=== PATIENT | male | born 1965 | race Caucasian/White ===

== ENCOUNTER 2017-07-07 14:03 | Emergency (ER) | payer OTHER ==
[~2017-07-07] VITALS: Ht 180.3 cm; Wt 154.2 kg
[~2017-07-07 14:03] MED LIST: ASPI81CH PO; BUPR150ER PO; DIAZ5 PO; GABA600 PO; HYDCHL12.5 PO; HYDMOR2 PO; LISI20 PO; MONT10T PO; SERT50 PO; TADA10TA PO; TRAZ50 PO
[2017-07-07] MEDS ORDERED: SERT100 PO (14:27)
[2017-07-07] MEDS ORDERED: Lovenox40 MG/0.4 SC (14:36)
[2017-07-07] MEDS ORDERED: Lovenox120 MG/0.8 SC (14:36)
[2017-07-07] MEDS ORDERED: Coumadin5 MG PO ×2 (14:36→17:55)
[2018-05-04] MEDS ORDERED: ELIQUIS5 MG (13:54)
== END 2017-07-07 14:50 | disposition home or self-care (01) ==
LOC: ER 14:03
DX: I82.401 Acute embolism and thrombosis of unspecified deep veins of right lower extremity (principal); Z79.899 Other long term (current) drug therapy; Z79.82 Long term (current) use of aspirin; I10 Essential (primary) hypertension; Z87.891 Personal history of nicotine dependence
CPT/HCPCS: 96372; 99283; J1650

== ENCOUNTER → 2017-07-12 | Outpatient (CLI) | payer OTHER ==
[~2017-07-12] MED LIST changes: +Coumadin5 MG PO; +ELIQUIS5 MG; +Lovenox120 MG/0.8 SC; +Lovenox40 MG/0.4 SC; +SERT100 PO
== END | disposition home or self-care (01) ==
LOC: LAB EV 10:32
DX: Z79.01 Long term (current) use of anticoagulants (principal); Z51.81 Encounter for therapeutic drug level monitoring
CPT/HCPCS: 36416; 85610

== ENCOUNTER → 2017-10-05 | Outpatient (CLI) | payer OTHER ==
[~2017-10-05] MED LIST changes: -ELIQUIS5 MG
[2017-10-07 12:45] LABS: Prothrombin Result Negative (NEG)
== END | disposition home or self-care (01) ==
LOC: LAB EV 11:11 → LAB SHORT 11:11
PROVIDERS: Family Medicine
DX: I82.401 Acute embolism and thrombosis of unspecified deep veins of right lower extremity (principal)
CPT/HCPCS: 81240; 81241; 81291

== ENCOUNTER → 2018-08-09 | Outpatient (CLI) | payer OTHER, SELFPAY ==
[~2018-08-09] MED LIST changes: +ELIQUIS5 MG
[2018-08-09 13:46] LABS: BASOPHILS ABSOLUTE AUTO 0.06 K/mm3 (0.00-0.23); BASOPHILS PERCENT AUTO 1 % (0-2); EOSINOPHILS ABSOLUTE AUTO 0.39 K/mm3 (0.00-0.68); EOSINOPHILS PERCENT AUTO 6 % (0-6); Hematocrit 46.8 % (37.0-53.0); Hemoglobin 14.9 g/dL (13.5-17.5); IMMATURE GRAN ABSOLUTE AUTO 0.04 K/mm3 (0.00-0.10); IMMATURE GRAN PERCENT AUTO 1 % (0-1); LYMPHOCYTES ABSOLUTE AUTO 1.97 K/mm3 (0.84-5.20); LYMPHOCYTES PERCENT AUTO 28 % (21-46); MONOCYTES ABSOLUTE AUTO 0.75 K/mm3 (0.16-1.47); MONOCYTES PERCENT AUTO 11 % (4-13); Mean Corpuscular HGB 30.2 pg (26.0-34.0); Mean Corpuscular HGB Conc 31.8 g/dL (31.5-36.5); Mean Corpuscular Volume 95 fL (80-100); Mean Platelet Volume 9.8 fL (9.1-12.4); NEUTROPHILS ABSOLUTE AUTO 3.86 K/mm3 (1.96-9.15); NEUTROPHILS PERCENT AUTO 55 % (41-73); Platelet Count 308 K/mm3 (150-400); Red Blood Cell Count 4.93 M/mm3 (4.30-5.90); White Blood Cell Count 7.07 K/mm3 (4.00-11.30)
[2018-08-09 14:09] LABS: Alanine Aminotransfer (ALT/SGP 30 U/L (12-78); Albumin, Blood 3.7 g/dL (3.4-5.0); Alk Phos 105 U/L (50-136); Anion Gap 7 mmol/L (6-16); Aspartate Aminotrans (AST/SGOT 20 U/L (12-37); Bilirubin, Total 0.3 mg/dL (0.1-1.0); Blood Urea Nitrogen 13 mg/dL (8-24); Bun/Creatinine Ratio 14.7 (12.0-20.0); CO2, Blood 29 mmol/L (21-32); Calcium, Blood 8.9 mg/dL (8.5-10.1); Chloride, Blood 104 mmol/L (98-108); Creatinine, Blood 0.88 mg/dL (0.60-1.20); Globulin, Blood 3.7 g/dL (2.2-4.0); Glomerular Filtration Rate >60 (60-); Glucose, Blood 99 mg/dL (70-99); Sodium, Blood 140 mmol/L (136-145); Total Protein, Blood 7.4 g/dL (6.4-8.2)
[2018-08-09 14:12] LABS: Thyroid Stimulating Hormone 0.726 uIU/mL (0.360-4.800)
== END | disposition home or self-care (01) ==
LOC: LAB SHORT 13:25 → LAB 13:25
PROVIDERS: Physician Assistant
DX: R53.83 Other fatigue (principal)
CPT/HCPCS: 80053; 84443; 85025

== ENCOUNTER 2018-12-02 06:01 | Day surgery (SDC) | payer OTHER ==
[~2018-12-02] VITALS: Ht 177.8 cm; Wt 164.0 kg
[2018-12-02] MEDS ORDERED: XARELTO20 MG PO (06:27)
[2018-12-02] MEDS ORDERED: VENL150ER PO (06:29)
[2018-12-02] MEDS ORDERED: OXYC10TA19 PO (06:30)
[2018-12-02] MEDS ORDERED: Abilify2 MG PO (06:30)
--- NOTE | 2018-12-02 11:46 | NUR ---
PT DRESSED, R RADIAL SITE TR BAND DC'D, DRESSING AND SPLINT IN PLACE ON R WRIST, R ARM SLING PLACED, IV DC'D INTACT, PT CHOOSES TO AMB OUT WITH PARENTS DRIVING PT HOME. SEE RHYTHM STRIP RECORD FOR VITALS
[2019-01-02] MEDS ORDERED: ZOLP10 PO (15:11)
== END 2018-12-02 11:30 | disposition home or self-care (01) ==
LOC: MHTC 06:01
DX: I25.10 Atherosclerotic heart disease of native coronary artery without angina pectoris (principal); I07.1 Rheumatic tricuspid insufficiency; I10 Essential (primary) hypertension; E66.01 Morbid (severe) obesity due to excess calories; Z79.899 Other long term (current) drug therapy; Z87.891 Personal history of nicotine dependence
CPT/HCPCS: 93458; 99152; 99153; C1769; C1894; J1644; J2250; J3010; J7030; Q9967

== ENCOUNTER 2019-01-04 07:33 | Day surgery (SDC) | payer OTHER ==
[~2019-01-04] VITALS: Ht 177.8 cm; Wt 167.5 kg
[~2019-01-04 07:33] MED LIST changes: +Abilify2 MG PO; +OXYC10TA19 PO; +VENL150ER PO; +XARELTO20 MG PO; +ZOLP10 PO
--- NOTE | 2019-01-04 08:10 | NUR ---
PT ADMITTED TO [facility]. AGREES WITH PLANNED SURGERY. LUNG SOUNDS CLEAR.
--- NOTE | 2019-01-04 08:17 | NUR ---
NO PAS PLACED ON RIGHT LE, PT STATES DVT IN THAT LEG. DR. CRUZ AWARE.
--- NOTE | 2019-01-04 09:22 | NUR ---
01/04/19 0922 Tsering Dugan ALL COUNTS CORRECT.
--- NOTE | 2019-01-04 10:10 | NUR ---
"ENERGY RISK MANAGEMENT ANALYST | REPORT FROM SHONA DUMONT, PATIENT TRANSFER TO DAY SURGERY, AND REPORT TO GUS DUMONT. NO ISSUES."
--- NOTE | 2019-01-04 10:55 | NUR ---
Discharge instructions reviewed with patient. Patient verbalizes understanding. Copy given to patient to take home. Post op shoe placed to r foot. pt given rx and ice pack. Discharged via wheelchair to private car for ride home.
== END 2019-01-04 10:50 | disposition home or self-care (01) ==
LOC: ORSCMMR 07:33 → ORD 08:30 → ORSCMMR 09:00 → ORD 11:45 → ORSCMMR 11:45
PROVIDERS: Podiatrist Foot & Ankle Surgery
PROC: 0QBN0ZZ Excision of Right Metatarsal, Open Approach (ICD-10-PCS; principal; 2019-01-04 09:00)
DX: M21.961 Unspecified acquired deformity of right lower leg (principal); I10 Essential (primary) hypertension; I25.10 Atherosclerotic heart disease of native coronary artery without angina pectoris; J44.9 Chronic obstructive pulmonary disease, unspecified; G47.33 Obstructive sleep apnea (adult) (pediatric); F17.210 Nicotine dependence, cigarettes, uncomplicated; E66.01 Morbid (severe) obesity due to excess calories; Z68.43 Body mass index [BMI] 50.0-59.9, adult; Z79.899 Other long term (current) drug therapy
CPT/HCPCS: J0690; J1100; J1885; J2250; J2405; J2704; J3010; J7120

== ENCOUNTER 2019-10-23 17:40 | Inpatient (IN) | payer MEDICARE, OTHER ==
[~2019-10-23] VITALS: Ht 177.8 cm; Wt 180.2 kg
[~2019-10-23 17:40] MED LIST changes: -Abilify2 MG PO; -GABA600 PO; -HYDCHL12.5 PO; -TRAZ50 PO; -VENL150ER PO; -XARELTO20 MG PO; -ZOLP10 PO
[2019-10-23 18:25] LABS: BASOPHILS ABSOLUTE AUTO 0.07 K/mm3 (0.00-0.23); BASOPHILS PERCENT AUTO 1 % (0-2); EOSINOPHILS ABSOLUTE AUTO 0.29 K/mm3 (0.00-0.68); EOSINOPHILS PERCENT AUTO 4 % (0-6); Hematocrit 38.3 % (37.0-53.0); Hemoglobin 12.1 g/dL (13.5-17.5); IMMATURE GRAN ABSOLUTE AUTO 0.02 K/mm3 (0.00-0.10); IMMATURE GRAN PERCENT AUTO 0 % (0-1); LYMPHOCYTES ABSOLUTE AUTO 1.65 K/mm3 (0.84-5.20); LYMPHOCYTES PERCENT AUTO 24 % (21-46); MONOCYTES ABSOLUTE AUTO 0.97 K/mm3 (0.16-1.47); MONOCYTES PERCENT AUTO 14 % (4-13); Mean Corpuscular HGB 29.9 pg (26.0-34.0); Mean Corpuscular HGB Conc 31.6 g/dL (31.5-36.5); Mean Corpuscular Volume 95 fL (80-100); NEUTROPHILS ABSOLUTE AUTO 3.78 K/mm3 (1.96-9.15); NEUTROPHILS PERCENT AUTO 56 % (41-73); Platelet Count 278 K/mm3 (150-400); RDW Coefficient Variation 14.6 % (11.7-14.2); RDW Standard Deviation 51.4 fL (35.1-46.3); Red Blood Cell Count 4.05 M/mm3 (4.30-5.90); White Blood Cell Count 6.78 K/mm3 (4.00-11.30)
[2019-10-23 18:51] LABS: Magnesium, Blood 2.4 mg/dL (1.6-2.4)
[2019-10-23 18:56] LABS: Albumin, Blood 3.5 g/dL (3.4-5.0); Albumin/Globulin Ratio 0.9 (0.8-1.8); Bilirubin, Total 0.4 mg/dL (0.1-1.0); Bun/Creatinine Ratio 8.8 (12.0-20.0); Calcium, Blood 8.4 mg/dL (8.5-10.1); Creatinine, Blood 9.28 mg/dL (0.60-1.20); Globulin, Blood 3.7 g/dL (2.2-4.0); Potassium, Blood 5.3 mmol/L (3.5-5.5); Total Protein, Blood 7.2 g/dL (6.4-8.2)
[2019-10-23] MEDS ORDERED: Lovenox100 MG/1 M SC (19:13)
[2019-10-23] MEDS ORDERED: VENL150ER PO (19:14)
[2019-10-23] MEDS ORDERED: Coumadin5 MG PO (19:14)
[2019-10-23] MEDS ORDERED: POTA8 PO (19:15)
[2019-10-23] MEDS ORDERED: ZOLP10 PO (19:15)
[2019-10-23] MEDS ORDERED: FURO40 PO (19:15)
[2019-10-23] MEDS ORDERED: Trazodone HCl300 MG PO (19:16)
[2019-10-23] MEDS ORDERED: METFORMIN HCL500 M2 PO (19:17)
[2019-10-23] MEDS ORDERED: GABA800 PO (19:17)
[2019-10-23] MEDS ORDERED: ATORVASTATIN CA20 MG PO (19:18)
[2019-10-23] MEDS ORDERED: LISI20 PO (19:34)
[2019-10-23] MEDS ORDERED: HYDCHL12.5 PO (19:34)
[2019-10-23] MEDS ORDERED: Abilify2 MG PO (19:35)
[2019-10-23] MEDS ORDERED: XARELTO20 MG PO (19:35)
[2019-10-23] MEDS ORDERED: MEGA RED KRILL OIL PO (19:37)
[2019-10-23] MEDS ORDERED: VALACYCLOVIR1000 M1 PO (19:37)
[2019-10-23] MEDS ORDERED: CENTRUM MEN'S1 EACH PO (19:38)
[2019-10-23] MEDS ORDERED: [UNRECOGNIZED DRUG - REMARK] PO (19:39)
[2019-10-23 21:11] LABS: Creatine Kinase MB 9.1 ng/mL (0.0-3.6)
[2019-10-24 03:47] LABS: Hematocrit 35.6 % (37.0-53.0); Hemoglobin 11.3 g/dL (13.5-17.5)
[2019-10-24 04:09] LABS: CPK Creatine Kinase 694 U/L (39-308); Magnesium, Blood 2.6 mg/dL (1.6-2.4); Uric Acid, Blood 10.7 mg/dL (3.5-7.2)
[2019-10-24 04:21] LABS: Albumin, Blood 3.3 g/dL (3.4-5.0); Anion Gap 9 mmol/L (6-16); Blood Urea Nitrogen 85 mg/dL (8-24); Bun/Creatinine Ratio 8.3 (12.0-20.0); CO2, Blood 26 mmol/L (21-32); Calcium, Blood 8.1 mg/dL (8.5-10.1); Chloride, Blood 102 mmol/L (98-108); Glomerular Filtration Rate 6 (60-); Glucose, Blood 100 mg/dL (70-99); Phosphorus, Blood 5.8 mg/dL (2.5-4.9); Potassium, Blood 4.9 mmol/L (3.5-5.5); Sodium, Blood 137 mmol/L (136-145)
[2019-10-24] MEDS ORDERED: OXYC10TA19 PO (21:40)
[2019-10-25 04:04] LABS: Hematocrit 35.3 % (37.0-53.0); Hemoglobin 11.3 g/dL (13.5-17.5)
[2019-10-25 04:29] LABS: Magnesium, Blood 2.4 mg/dL (1.6-2.4)
[2019-10-25 04:37] LABS: Albumin, Blood 3.3 g/dL (3.4-5.0); Anion Gap 6 mmol/L (6-16); Blood Urea Nitrogen 66 mg/dL (8-24); CO2, Blood 29 mmol/L (21-32); Chloride, Blood 103 mmol/L (98-108); Creatinine, Blood 8.27 mg/dL (0.60-1.20); Glomerular Filtration Rate 7 (60-); Glucose, Blood 96 mg/dL (70-99); Phosphorus, Blood 5.8 mg/dL (2.5-4.9); Sodium, Blood 138 mmol/L (136-145)
[2019-10-26 01:10] LABS: HBSAG SCREEN Negative (Negative); HEP A AB, IGM Negative (Negative); HEP B CORE AB, IGM Negative (Negative); HEP C VIRUS AB <0.1 (0.0-0.9)
[2019-10-26 04:17] LABS: Hematocrit 35.7 % (37.0-53.0); Hemoglobin 11.3 g/dL (13.5-17.5)
[2019-10-26 04:33] LABS: Albumin, Blood 3.2 g/dL (3.4-5.0); Anion Gap 5 mmol/L (6-16); Blood Urea Nitrogen 55 mg/dL (8-24); CO2, Blood 29 mmol/L (21-32); Calcium, Blood 8.1 mg/dL (8.5-10.1); Chloride, Blood 104 mmol/L (98-108); Creatinine, Blood 4.98 mg/dL (0.60-1.20); Glomerular Filtration Rate 13 (60-); Glucose, Blood 91 mg/dL (70-99); Magnesium, Blood 2.4 mg/dL (1.6-2.4); Phosphorus, Blood 4.5 mg/dL (2.5-4.9); Sodium, Blood 138 mmol/L (136-145)
[2019-10-26 14:11] LABS: A/G RATIO 1.2 (0.7-1.7); ALBUMIN 3.2 g/dL (2.9-4.4); ALPHA-1-GLOBULIN 0.2 g/dL (0.0-0.4); ALPHA-2-GLOBULIN 0.9 g/dL (0.4-1.0); BETA GLOBULIN 0.9 g/dL (0.7-1.3); GAMMA GLOBULIN 0.9 g/dL (0.4-1.8); GLOBULIN, TOTAL 2.9 g/dL (2.2-3.9); IMMUNOGLOBULIN A, QN, SERUM 375 mg/dL (90-386); IMMUNOGLOBULIN G, QN, SERUM 882 mg/dL (603-1613); IMMUNOGLOBULIN M, QN, SERUM 48 mg/dL (20-172); M-SPIKE Not Observed g/dL (Not Observed); PROTEIN, TOTAL, SERUM 6.1 g/dL (6.0-8.5)
[2019-10-26 21:10] LABS: Protein, Urine Quantitative 22.4 mg/dL (0.0-11.9)
[2019-10-27 03:59] LABS: Hematocrit 37.9 % (37.0-53.0); Hemoglobin 12.1 g/dL (13.5-17.5)
[2019-10-27 04:30] LABS: Magnesium, Blood 2.3 mg/dL (1.6-2.4)
[2019-10-27 04:31] LABS: Albumin, Blood 3.2 g/dL (3.4-5.0); Anion Gap 5 mmol/L (6-16); Blood Urea Nitrogen 38 mg/dL (8-24); Bun/Creatinine Ratio 16.5 (12.0-20.0); CO2, Blood 32 mmol/L (21-32); Calcium, Blood 8.6 mg/dL (8.5-10.1); Chloride, Blood 102 mmol/L (98-108); Creatinine, Blood 2.31 mg/dL (0.60-1.20); Glomerular Filtration Rate 31 (60-); Glucose, Blood 98 mg/dL (70-99); Phosphorus, Blood 3.5 mg/dL (2.5-4.9); Potassium, Blood 4.8 mmol/L (3.5-5.5); Sodium, Blood 139 mmol/L (136-145)
[2019-10-28 05:23] LABS: Hematocrit 39.4 % (37.0-53.0); Hemoglobin 12.6 g/dL (13.5-17.5)
[2019-10-28 05:44] LABS: Albumin, Blood 3.4 g/dL (3.4-5.0); Anion Gap 5 mmol/L (6-16); Blood Urea Nitrogen 28 mg/dL (8-24); Bun/Creatinine Ratio 17.2 (12.0-20.0); CO2, Blood 32 mmol/L (21-32); Calcium, Blood 8.9 mg/dL (8.5-10.1); Chloride, Blood 101 mmol/L (98-108); Creatinine, Blood 1.63 mg/dL (0.60-1.20); Glomerular Filtration Rate 47 (60-); Glucose, Blood 105 mg/dL (70-99); Phosphorus, Blood 3.1 mg/dL (2.5-4.9); Potassium, Blood 4.1 mmol/L (3.5-5.5); Sodium, Blood 138 mmol/L (136-145)
[2019-10-31 13:07] LABS: ANA DIRECT Negative (Negative); ANTIMYELOPEROXIDASE (MPO) ABS <9.0 U/mL (0.0-9.0); ATYPICAL PANCA <1:20 titer (Neg:<1:20); CYTOPLASMIC (C-ANCA) <1:20 titer (Neg:<1:20); PERINUCLEAR (P-ANCA) <1:20 titer (Neg:<1:20)
[2019-11-01 09:07] LABS: ANTIGLOMERULAR BM AB 3 units (0-20); ANTIPROTEINASE 3 (PR-3) ABS <3.5 U/mL (0.0-3.5)
[2019-11-01 15:07] LABS: M-SPIKE, % Not Observed % (Not Observed); PROTEIN,TOTAL,URINE 9.5 mg/dL (Not Estab.)
== END 2019-10-28 13:27 | disposition home or self-care (01) | DRG 674 ==
LOC: ER 17:40 → ICUW 21:07 → PCU 21:07 → ICUE 21:07 → MEDS 21:07 → ICUE 21:08 → PCU 10-24 15:22 → MEDS 10-27 12:51
PROVIDERS: Emergency Medicine; Internal Medicine Nephrology; ADMIT Family Medicine
PROC: 0JH63XZ Insertion of Tunneled Vascular Access Device into Chest Subcutaneous Tissue and Fascia, Percutaneous Approach (ICD-10-PCS; principal; 2019-10-24)
PROC: 02HV33Z Insertion of Infusion Device into Superior Vena Cava, Percutaneous Approach (ICD-10-PCS; 2019-10-24)
PROC: B5181ZA Fluoroscopy of Superior Vena Cava using Low Osmolar Contrast, Guidance (ICD-10-PCS; 2019-10-24)
PROC: 5A1D70Z Performance of Urinary Filtration, Intermittent, Less than 6 Hours Per Day (ICD-10-PCS; 2019-10-24)
DX: N17.9 Acute kidney failure, unspecified (principal); I12.0 Hypertensive chronic kidney disease with stage 5 chronic kidney disease or end stage renal disease; E87.1 Hypo-osmolality and hyponatremia; M62.82 Rhabdomyolysis; Z68.43 Body mass index [BMI] 50.0-59.9, adult; N18.6 End stage renal disease; Z86.718 Personal history of other venous thrombosis and embolism; E78.5 Hyperlipidemia, unspecified; E79.0 Hyperuricemia without signs of inflammatory arthritis and tophaceous disease; I95.9 Hypotension, unspecified; E87.5 Hyperkalemia; E66.01 Morbid (severe) obesity due to excess calories; E87.70 Fluid overload, unspecified; Z87.891 Personal history of nicotine dependence; D64.9 Anemia, unspecified; M54.9 Dorsalgia, unspecified; G89.29 Other chronic pain; E11.22 Type 2 diabetes mellitus with diabetic chronic kidney disease
CPT/HCPCS: 36415; 36558; 51798; 71046; 76770; 76937; 80053; 80069; 80074; 81050; 82550; 82553; 82565; 82784; 82947; 83516; 83520; 83735; 84156; 84165; 84166; 84550; 85014; 85018; 85025; 86038; 86256; 86317; 86334; 86335; 93005; 93010; 93306; 97116; 97161; 97165; 97530; 99152; 99285-25; A9270; C1750; C1769; C1894; J1644; J2250; J2405; J3010; J7030; J7040

== ENCOUNTER → 2019-11-20 | Outpatient (CLI) | payer MEDICARE ==
[~2019-11-20] MED LIST changes: +ATORVASTATIN CA20 MG PO; +Abilify2 MG PO; +CENTRUM MEN'S1 EACH PO; +FURO40 PO; +GABA800 PO; +HYDCHL12.5 PO; +Lovenox100 MG/1 M SC; +MEGA RED KRILL OIL PO; +METFORMIN HCL500 M2 PO; +POTA8 PO; +Trazodone HCl300 MG PO; +VALACYCLOVIR1000 M1 PO; +VENL150ER PO; +XARELTO20 MG PO; +ZOLP10 PO; +[UNRECOGNIZED DRUG - REMARK] PO
[2019-11-20 18:13] LABS: BASOPHILS ABSOLUTE AUTO 0.08 K/mm3 (0.00-0.23); BASOPHILS PERCENT AUTO 1 % (0-2); EOSINOPHILS ABSOLUTE AUTO 0.31 K/mm3 (0.00-0.68); EOSINOPHILS PERCENT AUTO 4 % (0-6); Hematocrit 40.3 % (37.0-53.0); IMMATURE GRAN ABSOLUTE AUTO 0.03 K/mm3 (0.00-0.10); IMMATURE GRAN PERCENT AUTO 0 % (0-1); LYMPHOCYTES ABSOLUTE AUTO 1.54 K/mm3 (0.84-5.20); LYMPHOCYTES PERCENT AUTO 22 % (21-46); MONOCYTES ABSOLUTE AUTO 0.83 K/mm3 (0.16-1.47); MONOCYTES PERCENT AUTO 12 % (4-13); Mean Corpuscular HGB 29.8 pg (26.0-34.0); Mean Corpuscular HGB Conc 32.3 g/dL (31.5-36.5); Mean Corpuscular Volume 92 fL (80-100); Mean Platelet Volume 9.9 fL (9.1-12.4); NEUTROPHILS ABSOLUTE AUTO 4.26 K/mm3 (1.96-9.15); NEUTROPHILS PERCENT AUTO 61 % (41-73); Platelet Count 319 K/mm3 (150-400); RDW Coefficient Variation 14.6 % (11.7-14.2); RDW Standard Deviation 48.9 fL (35.1-46.3); Red Blood Cell Count 4.36 M/mm3 (4.30-5.90); White Blood Cell Count 7.05 K/mm3 (4.00-11.30)
[2019-11-20 18:22] LABS: Alanine Aminotransfer (ALT/SGP 35 U/L (12-78); Albumin, Blood 3.4 g/dL (3.4-5.0); Albumin/Globulin Ratio 0.8 (0.8-1.8); Alk Phos 117 U/L (40-126); Anion Gap 9 mmol/L (6-16); Aspartate Aminotrans (AST/SGOT 18 U/L (12-37); Bilirubin, Total 0.2 mg/dL (0.1-1.0); Blood Urea Nitrogen 18 mg/dL (8-24); Bun/Creatinine Ratio 14.5 (12.0-20.0); CO2, Blood 30 mmol/L (21-32); Calcium, Blood 8.6 mg/dL (8.5-10.1); Chloride, Blood 105 mmol/L (98-108); Creatinine, Blood 1.24 mg/dL (0.60-1.20); Globulin, Blood 4.4 g/dL (2.2-4.0); Glomerular Filtration Rate >60 (60-); Glucose, Blood 121 mg/dL (70-99); Potassium, Blood 4.2 mmol/L (3.5-5.5); Sodium, Blood 144 mmol/L (136-145); Total Protein, Blood 7.8 g/dL (6.4-8.2)
== END | disposition home or self-care (01) ==
LOC: LAB SHORT 18:07 → LAB EV 18:07
PROVIDERS: Physician Assistant
DX: R60.0 Localized edema (principal)
CPT/HCPCS: 80053; 85025; 85379

== ENCOUNTER 2020-02-05 11:09 | Emergency (ER) | payer MEDICARE, OTHER ==
[~2020-02-05] VITALS: Ht 180.3 cm; Wt 172.4 kg
[2020-02-05] MEDS ORDERED: WARF5 (11:36)
[2020-02-05 11:43] LABS: Source, Urine Clean Catch
[2020-02-05 11:53] LABS: Bilirubin, Urine Neg (Neg); Blood, Urine Neg (Neg); Glucose Qualitative, Urine Neg (Neg); Ketones, Urine Neg (Neg); Leukocyte Esterase, Urine Neg (Neg); Nitrite, Urine Neg (Neg); Protein, Urine Neg (Neg); Urobilinogen, Urine NORM (Normal)
[2020-02-05 11:59] LABS: Appearance, Urine Clear (Clear); Color, Urine Yellow (P-Yellow)
[2020-02-05 12:45] LABS: U Amphetamine Screen Not Detected; U Barbituate Screen Not Detected; U Benzodiazapine Screen Not Detected; U Buprenorphine Screen Not Detected; U Cannabinoids Screen Not Detected; U Cocaine Screen Not Detected; U Methadone Screen Not Detected; U Methamphetamine Screen Not Detected; U Opiates Screen Not Detected; U Oxycodone Screen DETECTED; U Phencyclidine Screen Not Detected; U Propoxyphene Screen Not Detected
[2020-02-05 13:29] LABS: BASOPHILS ABSOLUTE AUTO 0.07 K/mm3 (0.00-0.23); BASOPHILS PERCENT AUTO 1 % (0-2); EOSINOPHILS PERCENT AUTO 4 % (0-6); Hematocrit 41.8 % (37.0-53.0); Hemoglobin 13.2 g/dL (13.5-17.5); IMMATURE GRAN ABSOLUTE AUTO 0.02 K/mm3 (0.00-0.10); IMMATURE GRAN PERCENT AUTO 0 % (0-1); LYMPHOCYTES ABSOLUTE AUTO 1.37 K/mm3 (0.84-5.20); LYMPHOCYTES PERCENT AUTO 24 % (21-46); MONOCYTES ABSOLUTE AUTO 0.73 K/mm3 (0.16-1.47); MONOCYTES PERCENT AUTO 13 % (4-13); Mean Corpuscular HGB 29.5 pg (26.0-34.0); Mean Corpuscular HGB Conc 31.6 g/dL (31.5-36.5); Mean Corpuscular Volume 94 fL (80-100); Mean Platelet Volume 10.1 fL (9.1-12.4); NEUTROPHILS ABSOLUTE AUTO 3.37 K/mm3 (1.96-9.15); NEUTROPHILS PERCENT AUTO 59 % (41-73); Platelet Count 295 K/mm3 (150-400); RDW Coefficient Variation 14.4 % (11.7-14.2); RDW Standard Deviation 49.5 fL (35.1-46.3); Red Blood Cell Count 4.47 M/mm3 (4.30-5.90); White Blood Cell Count 5.76 K/mm3 (4.00-11.30)
[2020-02-05 14:01] LABS: Albumin, Blood 3.6 g/dL (3.4-5.0); Albumin/Globulin Ratio 0.9 (0.8-1.8); Bilirubin, Total 0.3 mg/dL (0.1-1.0); Bun/Creatinine Ratio 20.4 (12.0-20.0); Calcium, Blood 9.3 mg/dL (8.5-10.1); Creatinine, Blood 3.58 mg/dL (0.60-1.20); Globulin, Blood 3.8 g/dL (2.2-4.0); Potassium, Blood 5.5 mmol/L (3.5-5.5); Total Protein, Blood 7.4 g/dL (6.4-8.2)
[2020-02-05 14:02] LABS: Free Thyroxine 0.86 ng/dL (0.70-1.60); Magnesium, Blood 2.8 mg/dL (1.6-2.4); Thyroid Stimulating Hormone 0.527 uIU/mL (0.360-4.800)
== END 2020-02-05 14:32 | disposition home or self-care (01) ==
LOC: ER 11:09
PROVIDERS: Emergency Medicine
DX: R53.1 Weakness (principal); G25.3 Myoclonus; E11.9 Type 2 diabetes mellitus without complications; E78.5 Hyperlipidemia, unspecified; I10 Essential (primary) hypertension; F32.9 Major depressive disorder, single episode, unspecified; F41.9 Anxiety disorder, unspecified; Z91.018 Allergy to other foods; Z79.01 Long term (current) use of anticoagulants; Z79.899 Other long term (current) drug therapy
CPT/HCPCS: 70450; 80053; 81003; 83735; 84439; 84443; 85025; 99285-25

== ENCOUNTER → 2020-04-05 | Outpatient (CLI) | payer MEDICARE, OTHER ==
[~2020-04-05] MED LIST changes: +WARF5
== END ==
LOC: LAB SHORT 11:28 → LAB 11:28
DX: L08.9 Local infection of the skin and subcutaneous tissue, unspecified (principal)
CPT/HCPCS: 87070; 87077; 87186; 87205

== ENCOUNTER 2020-04-26 19:40 | Emergency (ER) | payer MEDICARE ==
[~2020-04-26] VITALS: Ht 180.3 cm; Wt 176.9 kg
[2020-04-27] MEDS ORDERED: TRAZ150T57 PO (15:07)
[2020-04-27] MEDS ORDERED: ATOR20 PO (15:07)
[2020-04-27] MEDS ORDERED: GABA800 PO (15:07)
[2020-04-27] MEDS ORDERED: VENL150ER PO (15:07)
[2020-04-27] MEDS ORDERED: LISI20 PO (15:08)
[2020-04-27] MEDS ORDERED: POTA8 PO (15:08)
[2020-04-27] MEDS ORDERED: FURO20 PO (15:08)
[2020-04-27] MEDS ORDERED: OXYC5 PO (15:09)
[2020-04-27] MEDS ORDERED: ZOLPIDEM TARTRA10 MG PO (15:38)
[2020-04-27] MEDS ORDERED: WARF5 PO (15:41)
== END 2020-04-26 20:40 | disposition left against medical advice (07) ==
LOC: ER 19:40
DX: Z53.21 Procedure and treatment not carried out due to patient leaving prior to being seen by health care provider (principal)

== ENCOUNTER 2020-04-27 13:00 | Observation (INO) | payer MEDICARE ==
[~2020-04-27] VITALS: Ht 180.3 cm; Wt 181.6 kg
[2020-04-27 14:16] LABS: BASOPHILS ABSOLUTE AUTO 0.08 K/mm3 (0.00-0.23); BASOPHILS PERCENT AUTO 1 % (0-2); EOSINOPHILS ABSOLUTE AUTO 0.21 K/mm3 (0.00-0.68); EOSINOPHILS PERCENT AUTO 3 % (0-6); Hematocrit 45.6 % (37.0-53.0); Hemoglobin 14.3 g/dL (13.5-17.5); IMMATURE GRAN ABSOLUTE AUTO 0.02 K/mm3 (0.00-0.10); IMMATURE GRAN PERCENT AUTO 0 % (0-1); LYMPHOCYTES ABSOLUTE AUTO 1.82 K/mm3 (0.84-5.20); LYMPHOCYTES PERCENT AUTO 29 % (21-46); MONOCYTES ABSOLUTE AUTO 0.75 K/mm3 (0.16-1.47); MONOCYTES PERCENT AUTO 12 % (4-13); Mean Corpuscular HGB 28.7 pg (26.0-34.0); Mean Corpuscular HGB Conc 31.4 g/dL (31.5-36.5); Mean Corpuscular Volume 92 fL (80-100); Mean Platelet Volume 9.9 fL (9.1-12.4); NEUTROPHILS ABSOLUTE AUTO 3.36 K/mm3 (1.96-9.15); NEUTROPHILS PERCENT AUTO 54 % (41-73); Platelet Count 267 K/mm3 (150-400); RDW Coefficient Variation 14.6 % (11.7-14.2); RDW Standard Deviation 49.5 fL (35.1-46.3); Red Blood Cell Count 4.98 M/mm3 (4.30-5.90); White Blood Cell Count 6.24 K/mm3 (4.00-11.30)
[2020-04-27 14:29] LABS: International Normalized Ratio 1.86; Prothrombin Time Results 19.2 Sec (9.7-11.5)
[2020-04-27 14:30] LABS: Alanine Aminotransfer (ALT/SGP 17 U/L (12-78); Albumin, Blood 3.5 g/dL (3.4-5.0); Albumin/Globulin Ratio 0.8 (0.8-1.8); Alk Phos 113 U/L (50-136); Anion Gap 2 mmol/L (6-16); Aspartate Aminotrans (AST/SGOT 17 U/L (12-37); Bilirubin, Total 0.3 mg/dL (0.1-1.0); Blood Urea Nitrogen 17 mg/dL (8-24); Bun/Creatinine Ratio 14.4 (12.0-20.0); CO2, Blood 32 mmol/L (21-32); Chloride, Blood 103 mmol/L (98-108); Creatinine, Blood 1.18 mg/dL (0.60-1.20); Globulin, Blood 4.2 g/dL (2.2-4.0); Glomerular Filtration Rate >60 (60-); Glucose, Blood 104 mg/dL (70-99); Potassium, Blood 4.4 mmol/L (3.5-5.5); Sodium, Blood 137 mmol/L (136-145); Total Protein, Blood 7.7 g/dL (6.4-8.2); Troponin I <0.015 ng/mL (0.000-0.040)
[2020-04-27] MEDS ORDERED: ATOR20 PO (15:07)
[2020-04-27] MEDS ORDERED: VENL150ER PO (15:07)
[2020-04-27] MEDS ORDERED: GABA800 PO (15:07)
[2020-04-27] MEDS ORDERED: TRAZ150T57 PO (15:07)
[2020-04-27] MEDS ORDERED: FURO20 PO (15:08)
[2020-04-27] MEDS ORDERED: LISI20 PO (15:08)
[2020-04-27] MEDS ORDERED: POTA8 PO (15:08)
[2020-04-27] MEDS ORDERED: OXYC5 PO (15:09)
[2020-04-27] MEDS ORDERED: ZOLPIDEM TARTRA10 MG PO (15:38)
[2020-04-27] MEDS ORDERED: WARF5 PO (15:41)
--- NOTE | 2020-04-27 17:45 | NUR ---
PT ARRIVED AT APPROX 1740 BY WHEELCHAIR FROM ED WITH AT SIDE. PT WAS CALM AND COOPERATIVE DURING ADMISSION PROCESS. HE WAS ABLE TO AMBULATE TO THE BED AND GET HIMSELF DRESSED, FAIRLY INDEPENDENT IN ROOM. DINNER TRAY WAS ORDERED AND PROVIDED TO PT BEFORE BECOMING NPO @ MIDNIGHT. PT ORIENTED TO ROOM, ENCOURAGED TO USE CALL LIGHT, AND ALSO ENCOURAGED TO HAVE HIS TAKE HIS POSSESIONS HOME.
--- NOTE | 2020-04-27 20:27 | NUR ---
DR SOTO CALLED AND THIS NURSE ADVISED MD THAT PT HAS NOT RECEIVED ANY WARFARIN OR LOVENOX YET TODAY; MD WAS GOING TO DISCONTINUE BOTH THESE MEDS; MD WILL CONSULT TOMORROW.
--- NOTE | 2020-04-28 03:49 | NUR ---
SHIFT SUMMARY: 54 Y/O MORBID OBESE MALE RESTED COMFORTABLY ALL SHIFT; DENIES PAIN OR NAUSEA; UP AD [place] TO BATHROOM WITHOUT ISSUE; PT HAS CARDIOLOGY CONSULT WITH DR SOTO TODAY (LOVENOX AND WARFARIN ALL ON HOLD PER MD); NPO SINCE MIDNIGHT; TELEMETRY REFLECTS SINUS TACHYCARDIA PER XANDER--PHONE SPECIALIST (102 HEART RATE); WORE PERSONAL BIPAP ALL SHIFT; BED LOW POSITION WITH CALL LIGHT AT SIDE.
[2020-04-28 05:22] LABS: International Normalized Ratio 1.73; Prothrombin Time Results 17.9 Sec (9.7-11.5)
[2020-04-28 05:35] LABS: Albumin, Blood 3.3 g/dL (3.4-5.0); Anion Gap 4 mmol/L (6-16); Blood Urea Nitrogen 20 mg/dL (8-24); Bun/Creatinine Ratio 16.5 (12.0-20.0); CO2, Blood 33 mmol/L (21-32); Calcium, Blood 8.8 mg/dL (8.5-10.1); Chloride, Blood 102 mmol/L (98-108); Creatinine, Blood 1.21 mg/dL (0.60-1.20); Glomerular Filtration Rate >60 (60-); Glucose, Blood 85 mg/dL (70-99); Phosphorus, Blood 3.8 mg/dL (2.5-4.9); Potassium, Blood 3.9 mmol/L (3.5-5.5); Sodium, Blood 139 mmol/L (136-145)
--- NOTE | 2020-04-28 09:13 | NUR ---
echocardiogram complete
--- NOTE | 2020-04-28 16:37 | NUR ---
SHIFT SUMMARY NO ACUTE CHANGES T/O SHIFT, A&Ox4. PT WILL HAVE PACEMAKER PLACED TOMORROW AT SOME POINT AND LIKELY DISCHARGE ON WEDNESDAY. PT IS TO BE NPO AFTER MIDNIGHT TONIGHT. PT EXPERIENCED ONE PERIOD OF SINUS TACHY WITH A RATE OF 103 AFTER SHOWERING. HE IS CURRENTLY LAYING IN BED VISITING WITH HIS . CALL LIGHT IS WITHIN REACH. WILL REPORT TO UNCOMING NURSE.
--- NOTE | 2020-04-29 05:24 | NUR ---
SUMMARY: PT A/OX4, INDEPENDENT AND CALLS APPROPRIATELY TO SPECIFY NEEDS. HE'S BEEN NPO SINCE MIDNIGHT FOR PM PLACEMENT TODAY. PT WAS NSR AT 80'S-90'S BPM W/O ECTOPIES. AMBIEN RECIEVED PER PT REQUEST FOR SLEEP AND PRN OXYCODONE PROVIDED FOR TOLERABLE RELIEF OF BACK PAIN. PT WORE CPAP AT HS AND REFUSES CONT. BIOX. NO ACUTE CHANGES, VSS/AFEBRILE. WCTM AND REPORT TO DAY RN.
[2020-04-29 05:42] LABS: International Normalized Ratio 1.46; Prothrombin Time Results 15.3 Sec (9.7-11.5)
[2020-04-29 05:44] LABS: Anion Gap 4 mmol/L (6-16); Blood Urea Nitrogen 22 mg/dL (8-24); Bun/Creatinine Ratio 19.8 (12.0-20.0); CO2, Blood 32 mmol/L (21-32); Calcium, Blood 9.1 mg/dL (8.5-10.1); Chloride, Blood 104 mmol/L (98-108); Creatinine, Blood 1.11 mg/dL (0.60-1.20); Glomerular Filtration Rate >60 (60-); Glucose, Blood 85 mg/dL (70-99); Potassium, Blood 4.1 mmol/L (3.5-5.5); Sodium, Blood 140 mmol/L (136-145)
--- NOTE | 2020-04-29 13:12 | NUR ---
PT LEFT MEDICAL FLOOR FOR [facility] TO HAVE PACEMAKER SET, HAD BEEN NPO ALL DAY, NO COMPLAINTS, TELE SHOWING NSR
--- NOTE | 2020-04-29 14:09 | NUR ---
PT PREVIOUSLY BROUGHT TO PURCHASING AGENT VIA W/C WITH TELEMETRY. PT NOTED TO HAVE PERIPHERAL IV 22 G PLACED ON LEFT SIDE OF CHEST WHERE PACEMAKER WAS TO BE INSERTED. DR. GORDON INFORMED, IV REMOVED, CATHETER TIP CUT AND SENT FOR CULTURE. NEW 20 G IV PLACED TO LEFT AC. REPORT CALLED TO MEDICAL FLOOR NURSE. PT RETURNED TO ROOM 361, PLAN FOR PACEMAKER INSERTION ON WEDNESDAY.
--- NOTE | 2020-04-29 17:46 | NUR ---
SHIFT SUMMARY LORIE DENIED PAIN THIS SHIFT. AT BS. UNABLE TO DO PACER PLACEMENT DUE TO PIV LOCATION, AWAITING CULTURE RESULTS ON PIV CULTURE ON WEDNESDAY, SO WILL HAVE PACER PLACEMENT ON WEDNESDAY. CBGS NOT REQUIRING COVERAGE. INDEP IN ROOM. TELE SHOWING NSR. WCTM
--- NOTE | 2020-04-30 05:04 | NUR ---
SUMMARY: A/OX4, INDEPENDENT IN ROOM AND CALLS APPROPRIATELY TO SPECIFY NEEDS. HE REMAINS ON TELEMETRY IN NSR AT 80'S-100'S BPM W/O ECTOPIES. PM PLACEMENT ON HOLD WHILE AWAITING IV CATH CX RESULTS. OXYCODONE AND AMBIEN PRN RECIEVED PRN FOR BACK PAIN AND SLEEP. NO ACUTE CHANGES, VSS/AFEBRILE. WCTM AND REPORT TO DAY RN.
[2020-04-30 05:24] LABS: International Normalized Ratio 1.26; Prothrombin Time Results 13.3 Sec (9.7-11.5)
[2020-04-30 05:27] LABS: Anion Gap 3 mmol/L (6-16); Blood Urea Nitrogen 23 mg/dL (8-24); Bun/Creatinine Ratio 18.4 (12.0-20.0); CO2, Blood 32 mmol/L (21-32); Calcium, Blood 8.9 mg/dL (8.5-10.1); Chloride, Blood 105 mmol/L (98-108); Creatinine, Blood 1.25 mg/dL (0.60-1.20); Glomerular Filtration Rate >60 (60-); Glucose, Blood 81 mg/dL (70-99); Potassium, Blood 4.1 mmol/L (3.5-5.5); Sodium, Blood 140 mmol/L (136-145)
--- NOTE | 2020-04-30 12:19 | NUR ---
NPO PATIENT IS TO BE NPO FOR POSSIBLE PACER PLACEMENT TOMORROW Wednesday05/01/2020 STARTING MIDNIGHT. MEDS ARE TO BE HELD AND ICE CHIPS OKAY TO GIVE PER VERBAL ORDER FROM DR. CURRAN.
--- NOTE | 2020-04-30 14:58 | NUR ---
Advance Directive (AD) education/Spiritual care visit conducted. Patient is on speaker phone with his spouse, Julianne so I ask them both about their interest level in AD information. They both confirm an interest. I explain about the importance and process of the AD. Julianne states that she would like an AD booklet as well and that she will be in tomorrow and they will go over the AD then. Spiritual Care. I then talk with patient about his medical issues and the plan to resolve those issues. Patient tells me about his family, his spiritual journey and the places he goes for peace and strength. I reinforce helpful attitudes and practices and provide therapeutic listening, pastoral children's counselor and prayer. Patient responds well and shows signs of an elevated mood. I will continue to remain available to patient and family.
--- NOTE | 2020-04-30 15:30 | NUR ---
May remove tele for shower Patient requesting for shower later this evening. Denied having any syncopal episode, dizziness, chest pain today. Dr. Galan informed of request and findings. Received telephone order to remove tele for shower. Order updated.
--- NOTE | 2020-04-30 19:14 | NUR ---
Shift Summary A/Ox4, pleasant and cooperative with care. Up in room independently. Denies shortness of breath, dizziness, nausea, vomiting, diarrhea. Blood sugars have been stable for 72 hours now and patient denies having diabetes. Have not had to medicated with insulin since admitted. Patient is NPO for possible pacer placement tomorrow pending IV catheter tip culture. C/O back pain but declined meds. States will take pain meds during night. Back pain relieved by repositioning and moving in room. Tele: NSR 90's. Report given to night RN.
--- NOTE | 2020-04-30 23:46 | NUR ---
BLOOD SUGAR CHECKS PT IS STATES HE DOES NOT HAVE A HX OF DIABETES. PT STATES HE WOULD LIKE TO STOP THE CBG CHECKS.
--- NOTE | 2020-05-01 04:34 | NUR ---
SUMMARY NO ISSUES NOTED. PT HAS SHOWERED THIS SHIFT AND REPORTS FEELING VERY GOOD. PT DENIES AND PERIODS OF DIZZINESS. PT HAS BEEN NPO SINCE 0000 HRS ORDERED. PT CURRENTLY SLEEPING AND BREATHING EASY.
[2020-05-01 05:52] LABS: Anion Gap 6 mmol/L (6-16); Blood Urea Nitrogen 23 mg/dL (8-24); Bun/Creatinine Ratio 20.4 (12.0-20.0); CO2, Blood 30 mmol/L (21-32); Calcium, Blood 8.9 mg/dL (8.5-10.1); Chloride, Blood 104 mmol/L (98-108); Creatinine, Blood 1.13 mg/dL (0.60-1.20); Glomerular Filtration Rate >60 (60-); Glucose, Blood 101 mg/dL (70-99); Potassium, Blood 3.8 mmol/L (3.5-5.5); Sodium, Blood 140 mmol/L (136-145)
--- NOTE | 2020-05-01 10:22 | NUR ---
1018 PT TO TRANSFER TO PCU FOLLOWING PACEMAKER PLACEMENT. REPORT GIVEN TO JAMI DUMONT.
--- NOTE | 2020-05-01 18:36 | NUR ---
SHIFT SUMMARY; BROUGHT TO PCU POST PACERMAKER PLACEMENT. A/A/OX4, SLING PLACED ON LEFT ARM ON ARRIVAL WITH INSTRUCTIONS NOT TO USE LEFT ARM. PRESSURE DRESSING IN PLACE TO LEFT CHEST WALL, CLEAN DRY AND INTACT. VSS, SPOUSE AT BEDSIDE, WILL CONTINUE TO MONITOR AND TREAT UNTIL CHANGE OF SHIFT.
--- NOTE | 2020-05-02 03:19 | NUR ---
PT NPO SINCE MIDNIGHT
--- NOTE | 2020-05-02 05:02 | NUR ---
SHIFT SUMMARY: 54 Y/O MORBID OBESE MALE RESTED COMFORTABLY ALL SHIFT; PTS LEFT UPPER CHEST DRESSING DRY AND INTACT WHILE WEARING SLING; DENIES PAIN OR NAUSEA; NPO SINCE MIDNIGHT FOR POSSIBLE SURGICAL INTERVENTION TODAY FOR PACEMAKER ISSUE; BED LOW POSITION WITH CALL LIGHT AT SIDE.
--- NOTE | 2020-05-02 14:37 | NUR ---
REPORT GIVEN TO BOO DUMONT TO ASSUME CARE ON MEDICAL FLOOR FOR IN HOUSE TRANSFER.
--- NOTE | 2020-05-02 15:32 | NUR ---
SHIFT SUMMARY PCU TRANSFER THIS AFTERNOON. PATIENT MEDICATED X1 FOR BACK PAIN. DENIES NAUSEA AND SHORTNESS OF BREATH. UP SBA IN ROOM. LEFT ARM IN SLING. LIEKELY DISCHARGE TOMORROW IF NO ISSUES WITH PACER PLACED TODAY.
--- NOTE | 2020-05-03 01:12 | NUR ---
05/02/20 PT RESTING COMFORTABLY IN BED; LEFT UPPER CHEST DRESSING DRY AND INTACT WITH PT WEARING ARL SLING LEFT ARM WITH NO ARM MOVEMENT NOTED AND ENCOURAGED.
--- NOTE | 2020-05-03 03:41 | NUR ---
SHIFT SUMMARY: 54 Y/O OBESE MALE RESTED COMFORTABLY ALL SHIFT; DENIES CHEST PAIN OR NAUSEA; TELEMETRY REFLECTS NSR WITH HEART RATE 66 PER XANDER--STONE CIRCULAR SAWYER; LEFT UPPER CHEST DRESSING DRY AND INTACT WITH LEFT ARM IN SLING WITH MINIMAL ARM MOVEMENT NOTED OR VOICED; ALERT AND ORIENTED X 4; PT POSSIBLE DISCHARGE HOME TODAY; BED LOW POSITION WITH CALL LIGHT AT SIDE.
[2020-05-03 14:26] LABS: International Normalized Ratio 1.07; Prothrombin Time Results 11.4 Sec (9.7-11.5)
[2020-05-03] MEDS ORDERED: ATEN50 PO (14:37)
[2020-05-03] MEDS ORDERED: ENOX100I SC (14:41)
--- NOTE | 2020-05-03 15:06 | NUR ---
PATIENT DISCHARGED AT 1505
== END 2020-05-03 15:06 | disposition home or self-care (01) ==
LOC: ER 13:00 → MEDS 13:01 → ER 16:01 → MEDS 16:01 → ER 04-28 12:43 → MEDS 04-28 12:45 → PCU 04-29 13:10 → MEDS 04-29 13:35 → PCU 05-01 12:08 → MEDS 05-02 14:41
PROVIDERS: Emergency Medicine; Family Medicine; Internal Medicine Cardiovascular Disease; ADMIT Internal Medicine
DX: I49.9 Cardiac arrhythmia, unspecified (principal); I49.5 Sick sinus syndrome; T82.120A Displacement of cardiac electrode, initial encounter; R55 Syncope and collapse; I12.9 Hypertensive chronic kidney disease with stage 1 through stage 4 chronic kidney disease, or unspecified chronic kidney disease; E11.22 Type 2 diabetes mellitus with diabetic chronic kidney disease; N18.4 Chronic kidney disease, stage 4 (severe); G47.33 Obstructive sleep apnea (adult) (pediatric); G89.29 Other chronic pain; E78.5 Hyperlipidemia, unspecified; F32.9 Major depressive disorder, single episode, unspecified; F41.9 Anxiety disorder, unspecified; M54.9 Dorsalgia, unspecified; E66.01 Morbid (severe) obesity due to excess calories; Z68.43 Body mass index [BMI] 50.0-59.9, adult; Z79.01 Long term (current) use of anticoagulants; Z79.899 Other long term (current) drug therapy; Z91.018 Allergy to other foods; Z86.718 Personal history of other venous thrombosis and embolism; Z87.891 Personal history of nicotine dependence; Z20.828 Contact with and (suspected) exposure to other viral communicable diseases; Z23 Encounter for immunization; Y83.1 Surgical operation with implant of artificial internal device as the cause of abnormal reaction of the patient, or of later complication, without mention of misadventure at the time of the procedure
CPT/HCPCS: 33208; 36415; 71045; 71046; 71250; 76937; 80048; 80053; 80069; 82947; 83880; 84484; 85025; 85610; 86850; 86900; 86901; 87070; 93005; 93010; 93306; 94762; 99152; 99153; 99285-25; A9270; A9270-GY; C1781; C1785; C1894; C1898; G0378; J0690; J1644; J2250; J3010; J7030; J7040; J7050; U0004

== ENCOUNTER 2020-10-29 20:49 | Emergency (ER) | payer MEDICARE ==
[~2020-10-29] VITALS: Ht 180.3 cm; Wt 176.9 kg
[~2020-10-29 20:49] MED LIST changes: +ATEN50 PO; +ATOR20 PO; +ENOX100I SC; +FURO20 PO; +OXYC5 PO; +TRAZ150T57 PO; +WARF5 PO; +ZOLPIDEM TARTRA10 MG PO
[2020-10-29 21:51] LABS: BASOPHILS ABSOLUTE AUTO 0.11 K/mm3 (0.00-0.23); BASOPHILS PERCENT AUTO 1 % (0-2); EOSINOPHILS ABSOLUTE AUTO 0.21 K/mm3 (0.00-0.68); EOSINOPHILS PERCENT AUTO 2 % (0-6); Hematocrit 44.8 % (37.0-53.0); Hemoglobin 14.4 g/dL (13.5-17.5); IMMATURE GRAN ABSOLUTE AUTO 0.04 K/mm3 (0.00-0.10); IMMATURE GRAN PERCENT AUTO 0 % (0-1); LYMPHOCYTES ABSOLUTE AUTO 2.06 K/mm3 (0.84-5.20); LYMPHOCYTES PERCENT AUTO 22 % (21-46); MONOCYTES ABSOLUTE AUTO 0.96 K/mm3 (0.16-1.47); MONOCYTES PERCENT AUTO 10 % (4-13); Mean Corpuscular HGB 28.7 pg (26.0-34.0); Mean Corpuscular HGB Conc 32.1 g/dL (31.5-36.5); Mean Corpuscular Volume 89 fL (80-100); Mean Platelet Volume 9.8 fL (9.1-12.4); NEUTROPHILS ABSOLUTE AUTO 6.01 K/mm3 (1.96-9.15); NEUTROPHILS PERCENT AUTO 64 % (41-73); Platelet Count 269 K/mm3 (150-400); RDW Coefficient Variation 16.1 % (11.7-14.2); RDW Standard Deviation 52.9 fL (35.1-46.3); Red Blood Cell Count 5.02 M/mm3 (4.30-5.90); White Blood Cell Count 9.39 K/mm3 (4.00-11.30)
[2020-10-29 22:09] LABS: Alanine Aminotransfer (ALT/SGP 19 U/L (12-78); Albumin, Blood 3.8 g/dL (3.4-5.0); Albumin/Globulin Ratio 1.1 (0.8-1.8); Alk Phos 102 U/L (50-136); Anion Gap 5 mmol/L (6-16); Aspartate Aminotrans (AST/SGOT 18 U/L (12-37); Bilirubin, Total 0.4 mg/dL (0.1-1.0); Blood Urea Nitrogen 32 mg/dL (8-24); Bun/Creatinine Ratio 13.1 (12.0-20.0); CO2, Blood 31 mmol/L (21-32); Chloride, Blood 99 mmol/L (98-108); Creatinine, Blood 2.44 mg/dL (0.60-1.20); Globulin, Blood 3.6 g/dL (2.2-4.0); Glomerular Filtration Rate 29 (60-); Glucose, Blood 140 mg/dL (70-99); Sodium, Blood 135 mmol/L (136-145); Total Protein, Blood 7.4 g/dL (6.4-8.2); Troponin I <0.015 ng/mL (0.000-0.040)
[2020-10-30] MEDS ORDERED: CEPH500 PO (00:40)
== END 2020-10-30 00:50 | disposition home or self-care (01) ==
LOC: ER 20:49
PROVIDERS: Physician Assistant
DX: S51.812A Laceration without foreign body of left forearm, initial encounter (principal); Z23 Encounter for immunization; Z79.01 Long term (current) use of anticoagulants; Z79.899 Other long term (current) drug therapy
CPT/HCPCS: 12002; 36415; 70450; 71046; 80053; 84484; 85025; 90471; 90714; 93005; 93010; 99284-25

== ENCOUNTER 2020-11-08 09:10 | Day surgery (SDC) | payer MEDICARE ==
[~2020-11-08] VITALS: Ht 180.3 cm; Wt 179.0 kg
[~2020-11-08 09:10] MED LIST changes: +CEPH500 PO
--- NOTE | 2020-11-08 11:43 | NUR ---
11/08/20 1143 Luke Fitzpatrick History, Chart, Medications and Allergies reviewed before start of procedure. MONITOR INTACT WITH CONTINUOUS PULSE OXIMETRY AND INTERMITTENT BP. EKG MONITORED DURING PROCEDURE. O2 VIA N/C INTACT THROUGHOUT SEDATION/PROCEDURE. Bite Block Placed. See Anesthesia record/DR GAVIRIA.
--- NOTE | 2020-11-08 11:45 | NUR ---
Ambulatory in Day Surgery History, Chart, Medications and Allergies reviewed before start of procedure. Lungs clear T/O to Auscultation. Patient confirms NPO status and agrees with scheduled surgery. Pre-Op teaching done. Pt verbalizes understanding. Patient States Post-Procedure ride home has been arranged.
--- NOTE | 2020-11-08 13:48 | NUR ---
Patient up to Ambulate independently. Gait steady. Discharge instructions reviewed with patient. Patient verbalizes understanding. Copy given to patient to take home. Discharged via wheelchair to private car for ride home WITH MOTHER
== END 2020-11-08 22:39 | disposition home or self-care (01) ==
LOC: ORSCMMR 09:10 → ORD 11:45 → ORSCMMR 22:39
PROVIDERS: Internal Medicine Gastroenterology
PROC: 0DB58ZX Excision of Esophagus, Via Natural or Artificial Opening Endoscopic, Diagnostic (ICD-10-PCS; principal; 2020-11-08 10:45)
PROC: 0DB68ZX Excision of Stomach, Via Natural or Artificial Opening Endoscopic, Diagnostic (ICD-10-PCS; principal; 2020-11-08 10:45)
DX: K22.70 Barrett's esophagus without dysplasia (principal); K44.9 Diaphragmatic hernia without obstruction or gangrene; Z01.818 Encounter for other preprocedural examination; E11.22 Type 2 diabetes mellitus with diabetic chronic kidney disease; I12.9 Hypertensive chronic kidney disease with stage 1 through stage 4 chronic kidney disease, or unspecified chronic kidney disease; N18.4 Chronic kidney disease, stage 4 (severe); Z86.718 Personal history of other venous thrombosis and embolism; E66.01 Morbid (severe) obesity due to excess calories; Z68.43 Body mass index [BMI] 50.0-59.9, adult; G47.33 Obstructive sleep apnea (adult) (pediatric); Z79.899 Other long term (current) drug therapy; Z87.891 Personal history of nicotine dependence
CPT/HCPCS: 82947; 88305; 88342; A9270; J2704; J7120

== ENCOUNTER 2021-05-04 17:30 | Inpatient (IN) | payer MEDICARE ==
[~2021-05-04] VITALS: Ht 180.3 cm; Wt 183.5 kg
[2021-05-04 18:58] LABS: BASOPHILS ABSOLUTE AUTO 0.07 K/mm3 (0.00-0.23); BASOPHILS PERCENT AUTO 1 % (0-2); EOSINOPHILS PERCENT AUTO 1 % (0-6); Hematocrit 44.5 % (37.0-53.0); Hemoglobin 13.9 g/dL (13.5-17.5); IMMATURE GRAN ABSOLUTE AUTO 0.02 K/mm3 (0.00-0.10); IMMATURE GRAN PERCENT AUTO 0 % (0-1); LYMPHOCYTES ABSOLUTE AUTO 1.65 K/mm3 (0.84-5.20); LYMPHOCYTES PERCENT AUTO 22 % (21-46); MONOCYTES ABSOLUTE AUTO 0.77 K/mm3 (0.16-1.47); MONOCYTES PERCENT AUTO 10 % (4-13); Mean Corpuscular HGB 29.8 pg (26.0-34.0); Mean Corpuscular HGB Conc 31.2 g/dL (31.5-36.5); Mean Corpuscular Volume 96 fL (80-100); Mean Platelet Volume 10.2 fL (9.1-12.4); NEUTROPHILS PERCENT AUTO 65 % (41-73); Platelet Count 239 K/mm3 (150-400); RDW Coefficient Variation 15.8 % (11.7-14.2); RDW Standard Deviation 55.9 fL (35.1-46.3); Red Blood Cell Count 4.66 M/mm3 (4.30-5.90); White Blood Cell Count 7.51 K/mm3 (4.00-11.30)
[2021-05-04 19:17] LABS: Albumin, Blood 3.7 g/dL (3.4-5.0); Bilirubin, Total 0.2 mg/dL (0.1-1.0); Calcium, Blood 8.4 mg/dL (8.5-10.1); Creatinine, Blood 4.49 mg/dL (0.60-1.20); Globulin, Blood 3.7 g/dL (2.2-4.0); Total Protein, Blood 7.4 g/dL (6.4-8.2)
[2021-05-04 19:42] LABS: Source, Urine Catheter
[2021-05-04 19:44] LABS: Appearance, Urine Clear (Clear); Blood, Urine Neg (Neg); Color, Urine Yellow (P-Yellow); Glucose Qualitative, Urine Neg (Neg); Ketones, Urine Neg (Neg); Leukocyte Esterase, Urine Neg (Neg); Nitrite, Urine Neg (Neg); Protein, Urine 1+ (Neg); Urobilinogen, Urine NORM (Normal)
[2021-05-04 19:50] LABS: Bilirubin, Urine 1+ (Neg)
[2021-05-04 21:43] LABS: SARS-Cov-2 (COVID-19) PCR, MMC NEGATIVE (NEGATIVE)
[2021-05-04 22:04] LABS: International Normalized Ratio 2.55; Prothrombin Time Results 25.2 Sec (9.7-11.5)
[2021-05-05] MEDS ORDERED: ZYRTEC10 M2 PO (04:34)
[2021-05-05] MEDS ORDERED: FLUT.05NI (04:36)
[2021-05-05] MEDS ORDERED: QUET100 PO (04:37)
[2021-05-05] MEDS ORDERED: OMEP20ER PO (04:37)
--- NOTE | 2021-05-05 05:44 | NUR ---
PT IN BED AND IS RESTING IN STABLE CONDITION. ADMITTED FROM ED AT 2300 LAST NIGHT AND WAS ASSISTED WITH GOING TO BED WHERE HE REMAINS SINCE ADMISSION. AAO, ASSISTED WITH CARE AND ADLS, ASSISTED WITH BATHROOM AND TOILETING NEEDS. HIS CALL LIGHT WAS GIVEN TO HIM AND WAS REMINDED TO CALL FOR HELP WHEN ASSISTANCE IS NEEDED HE IS MONITORED.
[2021-05-05 06:09] LABS: Bun/Creatinine Ratio 23.1 (12.0-20.0); Calcium, Blood 8.4 mg/dL (8.5-10.1); Creatinine, Blood 2.6 mg/dL (0.60-1.20); Potassium, Blood 4.7 mmol/L (3.5-5.5)
--- NOTE | 2021-05-05 14:16 | NUR ---
SHIFT SUMMARY: ACUTE RENAL FAILURE PATIENT IS ALERT AND ORIENTED X4. VS ARE WNL AND IS ON RA. PATIENT DENIES PAIN. HE HAS BEEN ABLE TO VOID AND PASS GAS. HE HAS BEEN ABLE TO AMBULATE WITH PT TODAY. HE WAS A SBA WITH FWW AND GAIT BELT. HE IS TOLERATING PO INTAKE. CALLS APPROPRIATELY. CALL LIGHT WITHIN REACH. IV FLUIDS RUNNING. THE PLAN IS TO KEEP HIM OVERNIGHT AND TO POSSIBLY DISCHARGE TOMORROW OR THE FOLLOWING DAY IF PATIENT IS FEELING BETTER.
[2021-05-06 04:32] LABS: International Normalized Ratio 2.54; Prothrombin Time Results 25.1 Sec (9.7-11.5)
[2021-05-06 04:36] LABS: Albumin, Blood 3.2 g/dL (3.4-5.0); Anion Gap 2 mmol/L (6-16); Blood Urea Nitrogen 29 mg/dL (8-24); Bun/Creatinine Ratio 27.4 (12.0-20.0); CO2, Blood 30 mmol/L (21-32); Calcium, Blood 8.8 mg/dL (8.5-10.1); Chloride, Blood 109 mmol/L (98-108); Creatinine, Blood 1.06 mg/dL (0.60-1.20); Glomerular Filtration Rate >60 (60-); Glucose, Blood 93 mg/dL (70-99); Phosphorus, Blood 2.3 mg/dL (2.5-4.9); Potassium, Blood 4.4 mmol/L (3.5-5.5); Sodium, Blood 141 mmol/L (136-145)
--- NOTE | 2021-05-06 04:38 | NUR ---
PT IS IN BED AT THIS TIME WHERE HE REMAINS MUCH OF THE NIGHT AND IS RESTING COMFORTABLY. HE IS ALERT AND ORIENTED, CONDITION IS STABLE. HE IS ASSISTED WITH HIS CARE AND ADLS, ASSISTED WITH BATHROM AND TOILETING NEEDS. HE IS MEDICATED INDICATED, CALL FLANNERY PLACED NEAR HIM AND ENCOURAGED TO CALL FOR HELP WHEN ASSISTANCE IS NEEDED HE IS MONITORED.
[2021-05-06] MEDS ORDERED: K-Phos Origina500 MG PO (12:15)
--- NOTE | 2021-05-06 12:30 | NUR ---
DISCHARGE SUMMARY: PATIENT WAS EDUCATED ON DISCHARGE INSTRUCTIONS. PATIENT VERBALIZED UNDERSTANDING OF INSTRUCTIONS. HIS POTASSIUM PERSCRIPTION HAS BEEN FAXED TO [facility] PER PATIENTS REQUEST. HE IS ALERT AND ORIENTED X4. VS ARE WNL AND IS ON RA. HE IS VOIDING AND TOLERATING PO INTAKE. HE WORKED WITH PT/OT AND WAS CLEARED. PATIENT REPORTS NOT HAVING TREMORS ANYMORE AND "FEELING A LOT BETTER". IV WAS TAKEN OUT. PATIENT IS GETTING DRESSED NOW AND HAS HIS ITEMS GATHERED. HIS MOTHER IS COMING TO PICK HIM UP TO TAKE HIM HOME.
== END 2021-05-06 12:40 | disposition home or self-care (01) | DRG 682 ==
LOC: ER 17:30 → ERHOLD 17:31 → SURS 23:24
PROVIDERS: Emergency Medicine; Internal Medicine; ADMIT Internal Medicine
DX: N17.9 Acute kidney failure, unspecified (principal); G92.8 Other toxic encephalopathy; Z68.43 Body mass index [BMI] 50.0-59.9, adult; I12.9 Hypertensive chronic kidney disease with stage 1 through stage 4 chronic kidney disease, or unspecified chronic kidney disease; N18.30 Chronic kidney disease, stage 3 unspecified; E11.22 Type 2 diabetes mellitus with diabetic chronic kidney disease; Z20.822 Contact with and (suspected) exposure to COVID-19; E66.01 Morbid (severe) obesity due to excess calories; M54.50 Low back pain, unspecified; G89.29 Other chronic pain; F32.A Depression, unspecified; F43.10 Post-traumatic stress disorder, unspecified; F41.9 Anxiety disorder, unspecified; E83.39 Other disorders of phosphorus metabolism; G47.33 Obstructive sleep apnea (adult) (pediatric); E78.5 Hyperlipidemia, unspecified; Z86.718 Personal history of other venous thrombosis and embolism; Z87.891 Personal history of nicotine dependence; Z90.49 Acquired absence of other specified parts of digestive tract; Z98.890 Other specified postprocedural states; Z91.018 Allergy to other foods; Z79.899 Other long term (current) drug therapy
CPT/HCPCS: 36415; 80048; 80053; 80069; 85025; 85610; 93005; 93010; 94762; 97116; 97162; 97165; 99285-25; A9270; G0378; J7030; U0004

== ENCOUNTER → 2021-06-09 | Outpatient (CLI) | payer MEDICARE ==
[~2021-06-09] MED LIST changes: +FLUT.05NI; +K-Phos Origina500 MG PO; +OMEP20ER PO; +QUET100 PO; +ZYRTEC10 M2 PO
[2021-06-09 13:37] LABS: BASOPHILS ABSOLUTE AUTO 0.05 K/mm3 (0.00-0.23); BASOPHILS PERCENT AUTO 1 % (0-2); EOSINOPHILS ABSOLUTE AUTO 0.18 K/mm3 (0.00-0.68); EOSINOPHILS PERCENT AUTO 2 % (0-6); Hematocrit 47.4 % (37.0-53.0); Hemoglobin 15.5 g/dL (13.5-17.5); IMMATURE GRAN ABSOLUTE AUTO 0.05 K/mm3 (0.00-0.10); IMMATURE GRAN PERCENT AUTO 1 % (0-1); LYMPHOCYTES ABSOLUTE AUTO 2.03 K/mm3 (0.84-5.20); LYMPHOCYTES PERCENT AUTO 20 % (21-46); MONOCYTES ABSOLUTE AUTO 0.97 K/mm3 (0.16-1.47); MONOCYTES PERCENT AUTO 9 % (4-13); Mean Corpuscular HGB 29.9 pg (26.0-34.0); Mean Corpuscular HGB Conc 32.7 g/dL (31.5-36.5); Mean Corpuscular Volume 91 fL (80-100); Mean Platelet Volume 9.6 fL (9.1-12.4); NEUTROPHILS ABSOLUTE AUTO 7.08 K/mm3 (1.96-9.15); NEUTROPHILS PERCENT AUTO 68 % (41-73); Platelet Count 316 K/mm3 (150-400); RDW Coefficient Variation 15.3 % (11.7-14.2); RDW Standard Deviation 51.8 fL (35.1-46.3); Red Blood Cell Count 5.19 M/mm3 (4.30-5.90); White Blood Cell Count 10.36 K/mm3 (4.00-11.30)
[2021-06-09 13:59] LABS: Alanine Aminotransfer (ALT/SGP 65 U/L (12-78); Albumin/Globulin Ratio 1.1 (0.8-1.8); Alk Phos 123 U/L (40-126); Amylase, Blood 63 U/L (25-115); Anion Gap 10 mmol/L (6-16); Aspartate Aminotrans (AST/SGOT 25 U/L (12-37); Bilirubin, Total 0.3 mg/dL (0.1-1.0); Blood Urea Nitrogen 14 mg/dL (8-24); Bun/Creatinine Ratio 14.6 (12.0-20.0); CO2, Blood 28 mmol/L (21-32); Calcium, Blood 8.7 mg/dL (8.5-10.1); Chloride, Blood 105 mmol/L (98-108); Creatinine, Blood 0.96 mg/dL (0.60-1.20); Globulin, Blood 3.7 g/dL (2.2-4.0); Glomerular Filtration Rate >60 (60-); Glucose, Blood 106 mg/dL (70-99); Potassium, Blood 4.2 mmol/L (3.5-5.5); Sodium, Blood 143 mmol/L (136-145); Total Protein, Blood 7.7 g/dL (6.4-8.2)
[2021-06-09 19:19] LABS: Campylobacter Sp Not Detected (NOT DETECT)
[2021-06-09 19:20] LABS: Adenovirus F 40/41 Not Detected (NOT DETECT); Astrovirus Not Detected (NOT DETECT); Cryptosporidium Not Detected (NOT DETECT); Cyclospora Cayetanensis Not Detected (NOT DETECT); E. Coli O157 Not Detected (NOT DETECT); Entamoeba Histolytica Not Detected (NOT DETECT); Enteroaggregative E. coli-EAEC Not Detected (NOT DETECT); Enteropathogenic E. coli-EPEC Not Detected (NOT DETECT); Enterotoxigenic E. coli-ETEC Not Detected (NOT DETECT); Giardia Lamblia Not Detected (NOT DETECT); Norovirus GI/GII Not Detected (NOT DETECT); Plesiomonas Shigelloides Not Detected (NOT DETECT); Rotavirus A Not Detected (NOT DETECT); Salmonella Sp Not Detected (NOT DETECT); Sapovirus Detected (NOT DETECT); Shiga Toxin-prod E. coli-STEC Not Detected (NOT DETECT); Shigella/Enteroin E. coli-EIEC Not Detected (NOT DETECT); Vibrio Cholerae Not Detected (NOT DETECT); Vibrio Sp Not Detected (NOT DETECT); Yersinia Enterocolitica Not Detected (NOT DETECT)
== END | disposition home or self-care (01) ==
LOC: LAB 13:34 → LAB SHORT 13:34
PROVIDERS: General Practice
DX: K82.9 Disease of gallbladder, unspecified (principal); E86.0 Dehydration; R19.7 Diarrhea, unspecified
CPT/HCPCS: 0097U; 80053; 82150; 85025; 87324

== ENCOUNTER 2021-10-24 09:54 | Day surgery (SDC) | payer MEDICARE ==
[~2021-10-24] VITALS: Ht 180.3 cm; Wt 166.0 kg
[~2021-10-24 09:54] MED LIST changes: +WARF4 PO
--- NOTE | 2021-10-24 11:14 | NUR ---
10/24/21 1114 Law Arroyo BUPIVACAINE 0.5% 30 MLS MIXED W/ EPI PER ORDER TO MAKE BUPIVACAINE 0.5% 1:200,000. BUPIVACAINE 0.5% 1:200,000 MIXED W/ LIDOCAINE 1% 1:1 FOR INJECTION AT OPSITE BY DR GALLARDO. 4 MLS INJECTED.
== END 2021-10-24 12:13 | disposition home or self-care (01) ==
LOC: ORSCSDS 09:54
PROVIDERS: Orthopaedic Surgery
PROC: 0LB80ZZ Excision of Left Hand Tendon, Open Approach (ICD-10-PCS; principal; 2021-10-24 11:15)
DX: M67.442 Ganglion, left hand (principal); M79.642 Pain in left hand; F41.9 Anxiety disorder, unspecified; I10 Essential (primary) hypertension; F32.A Depression, unspecified; F43.10 Post-traumatic stress disorder, unspecified; E66.01 Morbid (severe) obesity due to excess calories; Z68.43 Body mass index [BMI] 50.0-59.9, adult; Z79.899 Other long term (current) drug therapy; Z79.01 Long term (current) use of anticoagulants
CPT/HCPCS: J0171; J0690; J2250; J2704; J3010

== ENCOUNTER → 2022-06-17 | Outpatient (CLI) | payer MEDICARE | LOC: LAB 14:15 → LAB SHORT 14:15 | DX: L08.9 Local infection of the skin and subcutaneous tissue, unspecified (principal) | CPT/HCPCS: 87070; 87106; 87205 ==

== ENCOUNTER 2022-08-18 17:19 | Emergency (ER) | payer OTHER ==
[~2022-08-18] VITALS: Ht 180.3 cm; Wt 160.1 kg
[2022-08-18 17:46] LABS: BASOPHILS PERCENT AUTO 1 % (0-2); EOSINOPHILS ABSOLUTE AUTO 0.15 K/mm3 (0.00-0.68); EOSINOPHILS PERCENT AUTO 2 % (0-6); Hematocrit 50.4 % (37.0-53.0); Hemoglobin 17.2 g/dL (13.5-17.5); IMMATURE GRAN ABSOLUTE AUTO 0.03 K/mm3 (0.00-0.10); IMMATURE GRAN PERCENT AUTO 0 % (0-1); LYMPHOCYTES ABSOLUTE AUTO 2.45 K/mm3 (0.84-5.20); LYMPHOCYTES PERCENT AUTO 24 % (21-46); MONOCYTES ABSOLUTE AUTO 1.16 K/mm3 (0.16-1.47); MONOCYTES PERCENT AUTO 12 % (4-13); Mean Corpuscular HGB 30.2 pg (26.0-34.0); Mean Corpuscular HGB Conc 34.1 g/dL (31.5-36.5); Mean Corpuscular Volume 88 fL (80-100); Mean Platelet Volume 9.8 fL (9.1-12.4); NEUTROPHILS ABSOLUTE AUTO 6.16 K/mm3 (1.96-9.15); NEUTROPHILS PERCENT AUTO 61 % (41-73); Platelet Count 265 K/mm3 (150-400); RDW Coefficient Variation 13.5 % (11.7-14.2); RDW Standard Deviation 43.8 fL (35.1-46.3); White Blood Cell Count 10.05 K/mm3 (4.00-11.30)
[2022-08-18 18:06] LABS: Albumin, Blood 4.1 g/dL (3.4-5.0); Albumin/Globulin Ratio 1.1 (0.8-1.8); Bilirubin, Total 0.5 mg/dL (0.1-1.0); Calcium, Blood 9.6 mg/dL (8.5-10.1); Creatinine, Blood 0.87 mg/dL (0.60-1.20); Globulin, Blood 3.8 g/dL (2.2-4.0); Total Protein, Blood 7.9 g/dL (6.4-8.2)
[2022-08-18] MEDS ORDERED: ONDA4ODT MM (20:24)
[2022-08-18] MEDS ORDERED: HYDHCL25 PO (20:25)
== END 2022-08-18 20:46 | disposition home or self-care (01) ==
LOC: ER 17:19
PROVIDERS: Physician Assistant
DX: R10.11 Right upper quadrant pain (principal); R11.2 Nausea with vomiting, unspecified; R63.8 Other symptoms and signs concerning food and fluid intake; I12.9 Hypertensive chronic kidney disease with stage 1 through stage 4 chronic kidney disease, or unspecified chronic kidney disease; N18.9 Chronic kidney disease, unspecified; Z91.014 Allergy to mammalian meats; Z79.899 Other long term (current) drug therapy; Z79.01 Long term (current) use of anticoagulants
CPT/HCPCS: 36415; 76705; 80053; 85025; 96374; 96375; 99284-25; A9270; J2405; J2550

== ENCOUNTER → 2022-12-29 | Outpatient (CLI) | payer OTHER ==
[~2022-12-29] MED LIST changes: +CIPR500 PO; +CLOTRIMAZOLE AF1524 TOP; +FLUC150A PO; +HYDHCL25 PO; +NYSTATIN100000 U13 PO; +ONDA4ODT MM
== END | disposition home or self-care (01) ==
LOC: LAB 19:40 → LAB SHORT 19:40
DX: R30.0 Dysuria (principal)
CPT/HCPCS: 87086

== ENCOUNTER 2023-01-01 15:16 | Emergency (ER) | payer OTHER ==
[~2023-01-01] VITALS: Ht 180.3 cm; Wt 142.4 kg
[~2023-01-01 15:16] MED LIST changes: -CIPR500 PO; -CLOTRIMAZOLE AF1524 TOP; -FLUC150A PO; -NYSTATIN100000 U13 PO
[2023-01-01 16:16] LABS: Source, Urine Clean Catch
[2023-01-01 16:24] LABS: BASOPHILS ABSOLUTE AUTO 0.09 K/mm3 (0.00-0.23); BASOPHILS PERCENT AUTO 1 % (0-2); EOSINOPHILS ABSOLUTE AUTO 0.11 K/mm3 (0.00-0.68); EOSINOPHILS PERCENT AUTO 1 % (0-6); Hematocrit 49.7 % (37.0-53.0); IMMATURE GRAN ABSOLUTE AUTO 0.04 K/mm3 (0.00-0.10); IMMATURE GRAN PERCENT AUTO 0 % (0-1); LYMPHOCYTES ABSOLUTE AUTO 2.09 K/mm3 (0.84-5.20); LYMPHOCYTES PERCENT AUTO 22 % (21-46); MONOCYTES ABSOLUTE AUTO 1.09 K/mm3 (0.16-1.47); MONOCYTES PERCENT AUTO 11 % (4-13); Mean Corpuscular HGB 30.2 pg (26.0-34.0); Mean Corpuscular HGB Conc 34.2 g/dL (31.5-36.5); Mean Corpuscular Volume 88 fL (80-100); Mean Platelet Volume 9.7 fL (9.1-12.4); NEUTROPHILS PERCENT AUTO 65 % (41-73); Platelet Count 309 K/mm3 (150-400); RDW Coefficient Variation 14.1 % (11.7-14.2); RDW Standard Deviation 45.8 fL (35.1-46.3); Red Blood Cell Count 5.62 M/mm3 (4.30-5.90); White Blood Cell Count 9.72 K/mm3 (4.00-11.30)
[2023-01-01 16:32] LABS: Appearance, Urine Clear (Clear); Bilirubin, Urine Neg (Neg); Blood, Urine 1+ (Neg); Color, Urine Yellow (P-Yellow); Glucose Qualitative, Urine Neg (Neg); Ketones, Urine 3+ (Neg); Leukocyte Esterase, Urine 1+ (Neg); Nitrite, Urine Neg (Neg); Protein, Urine 1+ (Neg); Specific Gravity, Urine 1.025 (1.003-1.022); Urobilinogen, Urine NORM (Normal)
[2023-01-01 16:42] LABS: Albumin, Blood 4.3 g/dL (3.4-5.0); Albumin/Globulin Ratio 1.1 (0.8-1.8); Bilirubin, Total 0.5 mg/dL (0.1-1.0); Bun/Creatinine Ratio 17.1 (12.0-20.0); Calcium, Blood 9.6 mg/dL (8.5-10.1); Creatinine, Blood 1.11 mg/dL (0.60-1.20); Potassium, Blood 3.8 mmol/L (3.5-5.5); Total Protein, Blood 8.3 g/dL (6.4-8.2)
[2023-01-01 16:45] LABS: Bacteria Mod /hpf; Hyaline Casts 0-2 /lpf (0-2); Squamous Epithelial Cells Few /hpf (Few); Uric Acid Crystals Rare /hpf
[2023-01-01 18:41] VITALS: BP 96/69
[2023-01-01] MEDS ORDERED: CIPR500 PO (19:06)
[2023-01-01] MEDS ORDERED: CLOTRIMAZOLE AF1524 TOP (19:06)
[2023-01-01] MEDS ORDERED: FLUC150A PO (19:06)
[2023-01-01] MEDS ORDERED: NYSTATIN100000 U13 PO (19:06)
== END 2023-01-01 19:30 | disposition home or self-care (01) ==
LOC: ER 15:16
PROVIDERS: Physician Assistant
DX: R30.0 Dysuria (principal); R39.11 Hesitancy of micturition; I12.9 Hypertensive chronic kidney disease with stage 1 through stage 4 chronic kidney disease, or unspecified chronic kidney disease; N18.9 Chronic kidney disease, unspecified; Z95.0 Presence of cardiac pacemaker; Z91.014 Allergy to mammalian meats
CPT/HCPCS: 74176; 80053; 81001; 85025; 87086; 99284-25; A9270

== ENCOUNTER 2023-06-20 08:11 | Emergency (ER) | payer OTHER ==
[~2023-06-20] VITALS: Ht 180.3 cm; Wt 145.2 kg
[~2023-06-20 08:11] MED LIST changes: +CIPR500 PO; +CLOTRIMAZOLE AF1524 TOP; +FLUC150A PO; +NYSTATIN100000 U13 PO
[2023-06-20 09:07] VITALS: BP 100/74
== END 2023-06-20 10:43 | disposition home or self-care (01) ==
LOC: ER 08:11
DX: M25.561 Pain in right knee (principal); I12.9 Hypertensive chronic kidney disease with stage 1 through stage 4 chronic kidney disease, or unspecified chronic kidney disease; N18.9 Chronic kidney disease, unspecified; Z95.0 Presence of cardiac pacemaker; Z87.891 Personal history of nicotine dependence; Z79.01 Long term (current) use of anticoagulants; Z79.899 Other long term (current) drug therapy; Z91.018 Allergy to other foods; W18.39XA Other fall on same level, initial encounter
CPT/HCPCS: 73562-RT; 99283-25

== ENCOUNTER 2024-08-28 07:02 | Day surgery (SDC) | payer MEDICARE, OTHER ==
[~2024-08-28] VITALS: Ht 180.3 cm; Wt 150.1 kg
[~2024-08-28 07:02] MED LIST changes: +NS 500 ML IV ONE
[2024-08-28] MEDS ORDERED: FUROSEMIDE20 MG PO (08:06)
[2024-08-28] MEDS ORDERED: TAMSULOSIN HCL0.4 M1 PO (08:06)
[2024-08-28] MEDS ORDERED: METOPROLOL SUCC25 MG PO (08:09)
[2024-08-28] MEDS ORDERED: NS 500 ML IV ONE (08:19)
--- NOTE | 2024-08-28 08:27 | NUR ---
08/28/24 0827 Tia Dickson 0745: RECEIVED CALL FROM RAISA IN HEMATOLOGY. PER RAISA, VISUALLY THE HEMATOCRIT WILL BE TOO HIGH TO RECEIVE AN ACCURATE MEASUREMENT FOR THE LABS ORDERED (INCLUDING PTT) AND RECOMMENDS DRAWING A HEMATOCRIT SO THAT AN ADJUSTED BLUE TOP LAB CAN BE DRAWN. 0752: PER DR VELASCO AND DR URIARTE THOSE LABS ARE "NOT NEEDED" FOR THIS PROCEDURE SO CANCEL ORDER. 0758: PER PATIENT HE HAS A DVT IN HIS R LEG THAT SPANS "FROM FOOT TO GROIN" AND STOPPED TAKING HIS COUMADIN [address] VELASCO AND DR URIARTE NOTIFIED. NO NEW ORDERS, OK TO PROCEED PER DRS. 0810: CHART NOTES BLOOD SUGAR NEEDED, BLOOD SUGAR IS 132. PATIENT REPORTS HE WILL START OZEMPIC FOR WEIGHT LOSS NOT DIABETES BUT THAT HE HAS NOT STARTED IT YET. PER DR VELASCO PATIENT DOES NOT NEED TO RECEIVE ANTIBIOTICS. 0813: TIMEOUT FOR INJECTION 0814: 8 CC TOTAL OF MIX OF LIDOCAINE 1% WITH EPI 1:100,000 WITH 1 CC SODIUM BICARB DONE BY DR VELASCO
[2024-08-28] MEDS ORDERED: FentaNYL Citrate 50 MCG/ML 2 ML Injection ONE (08:28)
[2024-08-28] MEDS ORDERED: Dexamethasone Sod Phos 10 MG/ML 1ML VIAL ONE (08:28)
[2024-08-28] MEDS ORDERED: Ondansetron HCl 2 MG / ML 2ML Vial ONE (08:28)
[2024-08-28] MEDS ORDERED: Midazolam HCl 1MG / ML 2ML Vial ONE (08:28)
--- NOTE | 2024-08-28 08:59 | NUR ---
08/28/24 0859 Rita Zarate PT'S MOTHER BROUGHT BACK TO BEDSIDE AT THIS TIME. PT TOLERATING PO LIQUIDS W/O COMPLAINT. NO VISIBLE SIGNS OF DISTRESS NOTED.
[2024-08-28 09:00] VITALS: BP 102/54
== END 2024-08-28 09:13 | disposition home or self-care (01) ==
LOC: ORSCSDS 07:02
PROVIDERS: Orthopaedic Surgery
PROC: 01N54ZZ Release Median Nerve, Percutaneous Endoscopic Approach (ICD-10-PCS; principal; 2024-08-28 08:30)
DX: G56.03 Carpal tunnel syndrome, bilateral upper limbs (principal); G47.33 Obstructive sleep apnea (adult) (pediatric); E78.5 Hyperlipidemia, unspecified; I25.10 Atherosclerotic heart disease of native coronary artery without angina pectoris; I12.9 Hypertensive chronic kidney disease with stage 1 through stage 4 chronic kidney disease, or unspecified chronic kidney disease; F41.9 Anxiety disorder, unspecified; F32.A Depression, unspecified; N18.30 Chronic kidney disease, stage 3 unspecified; F43.10 Post-traumatic stress disorder, unspecified; E66.9 Obesity, unspecified; Z68.42 Body mass index [BMI] 45.0-49.9, adult; Z79.01 Long term (current) use of anticoagulants; Z79.899 Other long term (current) drug therapy; Z01.818 Encounter for other preprocedural examination; I82.5Y1 Chronic embolism and thrombosis of unspecified deep veins of right proximal lower extremity
CPT/HCPCS: 36415; 82947; J1100; J2250; J2405; J3010; J7040

== ENCOUNTER 2024-09-25 08:47 | Day surgery (SDC) | payer MEDICARE ==
[~2024-09-25] VITALS: Ht 180.3 cm; Wt 154.0 kg
[~2024-09-25 08:47] MED LIST changes: +ADCIRCA20 MG PO; +DEPO-TESTO200 MG/1 M IM; +FUROSEMIDE20 MG PO; +METOPROLOL SUCC25 MG PO; +TAMSULOSIN HCL0.4 M1 PO
[2024-09-25] MEDS ORDERED: CeFAZolin Sodium 2,000 MG VIAL ONE (08:52)
[2024-09-25] MEDS ORDERED: CeFAZolin Sodium 3,000 MG VIAL ONE (08:58)
[2024-09-25] MEDS ORDERED: Midazolam HCl 1MG / ML 2ML Vial ONE (09:10)
[2024-09-25] MEDS ORDERED: propofoL 20 ML IV ONE (09:10)
[2024-09-25] MEDS ORDERED: FentaNYL Citrate 50 MCG/ML 2 ML Injection ONE (09:10)
[2024-09-25] MEDS ORDERED: NS 500 ML IV ONE (09:31)
--- NOTE | 2024-09-25 09:58 | NUR ---
09/25/24 0958 BOBBY MUSE PT PLACED ON OXYGEN 10L VIA FACE TENT WHEN BROUGHT OUT OF SURGERY VERY SLEEPY. DROPPING INTO THE 80'S
[2024-09-25 10:16] VITALS: BP 123/82
== END 2024-09-25 10:39 | disposition home or self-care (01) ==
LOC: ORSCSDS 08:47
PROVIDERS: Orthopaedic Surgery
PROC: 01N54ZZ Release Median Nerve, Percutaneous Endoscopic Approach (ICD-10-PCS; principal; 2024-09-25 10:15)
DX: G56.01 Carpal tunnel syndrome, right upper limb (principal); I12.9 Hypertensive chronic kidney disease with stage 1 through stage 4 chronic kidney disease, or unspecified chronic kidney disease; N18.9 Chronic kidney disease, unspecified; F41.9 Anxiety disorder, unspecified; F43.10 Post-traumatic stress disorder, unspecified; Z95.0 Presence of cardiac pacemaker; E66.9 Obesity, unspecified; Z68.42 Body mass index [BMI] 45.0-49.9, adult; Z87.891 Personal history of nicotine dependence; Z79.899 Other long term (current) drug therapy
CPT/HCPCS: 82947; J0690; J2250; J2704; J3010; J7040

== ENCOUNTER 2025-03-05 06:11 | Day surgery (SDC) | payer MEDICARE ==
[~2025-03-05] VITALS: Ht 180.3 cm; Wt 151.2 kg
[~2025-03-05 06:11] MED LIST changes: +Lidocaine 1%-Epineph 1:100000 20 ML MDV ONE; -NS 500 ML IV ONE
[2025-03-05] MEDS ORDERED: Lidocaine HCl 2% 10 ML SDA ONE (06:51)
[2025-03-05] MEDS ORDERED: CeFAZolin Sodium 3,000 MG VIAL ONE (06:53)
[2025-03-05] MEDS ORDERED: NS 100 ML IV ONE (06:54)
[2025-03-05] MEDS ORDERED: NS 500 ML IV ONE (07:12)
[2025-03-05] MEDS ORDERED: FentaNYL Citrate 50 MCG/ML 2 ML Injection ONE (07:16)
[2025-03-05] MEDS ORDERED: Midazolam HCl 1MG / ML 2ML Vial ONE (07:17)
[2025-03-05] MEDS ORDERED: Ondansetron HCl 2 MG / ML 2ML Vial ONE (07:39)
[2025-03-05 08:51] VITALS: BP 15/497
--- NOTE | 2025-03-05 09:35 | NUR ---
03/05/[address] AT BEDSIDE UPON PT ARRIVAL IN PACU. SHE APPROVED D/C WITH RA O2 >88%.
== END 2025-03-05 09:19 | disposition home or self-care (01) ==
LOC: ORSCSDS 06:11
PROVIDERS: Orthopaedic Surgery
PROC: 0LB60ZZ Excision of Left Lower Arm and Wrist Tendon, Open Approach (ICD-10-PCS; principal; 2025-03-05 07:30)
PROC: 0KND0ZZ Release Left Hand Muscle, Open Approach (ICD-10-PCS; principal; 2025-03-05 07:30)
DX: M67.432 Ganglion, left wrist (principal); I10 Essential (primary) hypertension; F41.9 Anxiety disorder, unspecified; F32.9 Major depressive disorder, single episode, unspecified; F43.10 Post-traumatic stress disorder, unspecified; I25.10 Atherosclerotic heart disease of native coronary artery without angina pectoris; Z95.0 Presence of cardiac pacemaker; E66.01 Morbid (severe) obesity due to excess calories; Z68.42 Body mass index [BMI] 45.0-49.9, adult; Z79.82 Long term (current) use of aspirin; Z79.899 Other long term (current) drug therapy; Z87.891 Personal history of nicotine dependence
CPT/HCPCS: 82947; 88304; J0690; J2003; J2250; J2405; J2704; J3010

== ENCOUNTER 2025-05-14 11:20 | Day surgery (SDC) | payer MEDICARE ==
[~2025-05-14] VITALS: Ht 180.3 cm; Wt 153.1 kg
[~2025-05-14 11:20] MED LIST changes: -Lidocaine 1%-Epineph 1:100000 20 ML MDV ONE
[2025-05-14] MEDS ORDERED: Midazolam HCl 1MG / ML 2ML Vial ONE (12:42)
[2025-05-14] MEDS ORDERED: FentaNYL Citrate 50 MCG/ML 2 ML Injection ONE ×2 (12:42→13:59)
[2025-05-14] MEDS ORDERED: Rocuronium Bromide 10 MG/ML 5ML Injection IV ONE ×2 (12:46→12:47)
[2025-05-14] MEDS ORDERED: CeFAZolin Sodium 3,000 MG VIAL ONE (13:03)
[2025-05-14] MEDS ORDERED: Lidocaine HCl 2% 10 ML SDA INJ ONE (13:25)
[2025-05-14] MEDS ORDERED: HYDROmorphone HCl/Pf 1MG SYR ONE (13:31)
[2025-05-14] MEDS ORDERED: Ondansetron HCl 2 MG / ML 2ML Vial ONE (13:34)
[2025-05-14] MEDS ORDERED: Phenylephrine HCl 100 MCG/ML-NS 10MLSYR (1MG/10ML) ONE (13:47)
[2025-05-14] MEDS ORDERED: Sugammadex Sodium 200 MG/2ML SDV (100 MG/ML) ONE (13:59)
[2025-05-14] MEDS ORDERED: HYDROcodone 5-APAP 325 TAB ONE (15:00)
--- NOTE | 2025-05-14 15:17 | NUR ---
05/14/25 1517 BOBBY MUSE PT O2 SAT DROPS FROM TIME TO TIME. TRAINING ON INCENT SPIROM
[2025-05-14] MEDS ORDERED: NS 500 ML IV ONE (15:30)
[2025-05-14 16:23] VITALS: BP 117/91
== END 2025-05-14 17:05 | disposition home or self-care (01) ==
LOC: ORSCSDS 11:20
PROVIDERS: Orthopaedic Surgery
PROC: 0PTM0ZZ Resection of Right Carpal, Open Approach (ICD-10-PCS; principal; 2025-05-14 13:00)
PROC: 0RR Upper Joints, Replacement (ICD-10-PCS; principal; 2025-05-14 13:00)
PROC: 0PBM0ZZ Excision of Right Carpal, Open Approach (ICD-10-PCS; principal; 2025-05-14 13:00)
DX: M19.131 Post-traumatic osteoarthritis, right wrist (principal); M19.031 Primary osteoarthritis, right wrist; I10 Essential (primary) hypertension; I25.10 Atherosclerotic heart disease of native coronary artery without angina pectoris; Z95.0 Presence of cardiac pacemaker; E66.01 Morbid (severe) obesity due to excess calories; Z68.42 Body mass index [BMI] 45.0-49.9, adult; Z79.899 Other long term (current) drug therapy; G47.33 Obstructive sleep apnea (adult) (pediatric)
CPT/HCPCS: A9270; J0690; J1171; J2003; J2250; J2371; J2405; J2704; J3010; J7120